=== PATIENT | female | born 1965 | race Caucasian/White ===

== ENCOUNTER 2020-05-06 16:12 | Emergency (ER) | payer BC, MEDICAID ==
[~2020-05-06] VITALS: Ht 175.3 cm; Wt 89.1 kg
[2020-05-06 17:09] LABS: BASO % 1 % (0-3); EOS # 0.1 x10^3/uL (0.0-0.7); EOS % 3 % (0-3); HEMATOCRIT 36.1 % (36.0-47.0); HEMOGLOBIN 12.7 g/dL (12.0-15.5); LYMPH # 0.8 x10^3/uL (1.0-4.8); LYMPH % 26 % (24-48); MEAN CORPUSCULAR HEMOGLOBIN 30 pg (25-35); MEAN CORPUSCULAR HGB CONC 35 g/dL (31-37); MEAN CORPUSCULAR VOLUME 85 fL (79-100); MONO # 0.3 x10^3/uL (0.0-1.1); MONO % 9 % (0-9); NEUT # 1.8 x10^3uL (1.8-7.7); NEUT % 61 % (31-73); PLATELET COUNT 74 x10^3/uL (140-400); RED BLOOD COUNT 4.27 x10^6/uL (3.50-5.40); RED CELL DISTRIBUTION WIDTH 14.8 % (11.5-14.5)
[2020-05-06 17:18] LABS: CALCIUM 8.9 mg/dL (8.5-10.1); CREATININE 1.1 mg/dL (0.6-1.0); GFR 51.4; POTASSIUM 3.7 mmol/L (3.5-5.1)
[2020-05-06 17:24] LABS: ALBUMIN 3.8 g/dL (3.4-5.0); ALBUMIN/GLOBULIN RATIO 0.9 (1.0-1.7); TOTAL BILIRUBIN 0.5 mg/dL (0.2-1.0)
--- NOTE | 2020-05-06 17:40 | RAD ---
EXAM: CT Head without IV contrast CLINICAL HISTORY: Right sided weakness COMPARISON: None. TECHNIQUE: Routine CT of the head without contrast. Soft tissues and bone windows were reviewed. PQRS compliance statement - One or more of the following individualized dose reduction techniques were utilized for this study: 1. Automated exposure control 2. Adjustment of the mA and/or kV according to patient size 3. Use of iterative reconstruction technique FINDINGS: There is no evidence of hemorrhage, mass or extra-axial fluid collection. Beaver-white differentiation is maintained with no evidence of edema. There is no mass effect or shift of the intracranial structures. The ventricles, basilar cisterns and cortical sulci are normal in size and configuration for the patients stated age. The cerebellum and brainstem are unremarkable. The calvarium demonstrates no evidence of fracture or focal lesion. There is normal aeration of the visualized paranasal sinuses and mastoid air cells. The visualized portions of the orbits are normal. Atherosclerotic calcifications of the intracranial internal carotid arteries is seen. IMPRESSION: No evidence for acute intracranial process. Electronically signed by: Archie Patton MD (05/06/2020 5:37 PM) [facility]
[2020-05-06 17:48] LABS: BARBITURATES NEG (NEG); BENZODIAZEPINES NEG (NEG); CANNABINOIDS NEG (NEG); COCAINE NEG (NEG); METHADONE NEG (NEG); OPIATES NEG (NEG); PHENCYCLIDINE NEG (NEG)
[2020-05-06 17:50] LABS: BACTERIA,URINE FEW /HPF (0-FEW); BILIRUBIN,URINE NEG (NEG); CLARITY,URINE CLEAR; COLOR,URINE YELLOW; GLUCOSE,URINE NEG (NEG); NITRITE,URINE NEG (NEG); RBC,URINE 0 /HPF (0-2); SQUAMOUS EPITHELIAL CELL,UR FEW /LPF; UROBILINOGEN,URINE 0.2 mg/dL (0.2 mg/dL)
[2020-05-06 17:53] LABS: AMPHETAMINE/METHAMPHETAMINE NEG (NEG)
--- NOTE | 2020-05-06 18:00 | PHYS DOC ---
Past History Past Medical History: Hypertension, Liver Disease, Other Additional Past Medical Histor: LUPUS, LIVER CIRRHOSIS, HEP C, UTERINE PROLAPSE Past Surgical History: Appendectomy, Other Additional Past Surgical Histo: COLONOSCOPY YESTERDAY Alcohol Use: None Drug Use: None General Adult EDM: Chief Complaint: ALTERED MENTAL STATUS HPI: HPI: Patient is a 55-year-old female who presents with altered mental status and some right-sided weakness. Patient states that she had a colonoscopy done yesterday and when she got home she did not ever feel like she completely recovered from the anesthesia. At one point she states she was seeing people with shades of green and blue. She feels like she was seeing things that were not there. She states she had fever and chills throughout the night. She denies any headache. She states her family wanted to bring her to the hospital last night because she was not acting right but she refused. She noticed this morning when she woke up that she had right-sided weakness and did not feel like her right leg was working well. [] Review of Systems: Review of Systems: Constitutional: Denies fever or chills Eyes: Denies change in visual acuity HENT: Denies nasal congestion or sore throat Respiratory: Denies cough or shortness of breath Cardiovascular: Denies chest pain or edema GI: Denies abdominal pain, nausea, vomiting, bloody stools or diarrhea : Denies dysuria Musculoskeletal: Denies back pain or joint pain Integument: Denies rash Neurologic: Reports right-sided weakness Endocrine: Denies polyuria or polydipsia Lymphatic: Denies swollen glands Psychiatric: Reports anxiety Heart Score: Risk Factors: Risk Factors: DM, Current or recent (<one month) smoker, HTN, HLP, family history of CAD, obesity. Risk Scores: Score 0 - 3: 2.5% MACE over next 6 weeks - Discharge Home Score 4 - 6: 20.3% MACE over next 6 weeks - Admit for Clinical Observation Score 7 - 10: 72.7% MACE over next 6 weeks - Early Invasive Strategies Allergies: Allergies: Allergies Coded Allergies Type Severity Reaction Last Updated Verified No Known Drug Allergies 07/13/14 No Physical Exam: PE: Constitutional: Well developed, well nourished, no acute distress, non-toxic appearance. [] HENT: Normocephalic, atraumatic, bilateral external ears normal, oropharynx moist, no oral exudates, nose normal. [] Eyes: PERRLA, EOMI, conjunctiva normal, no discharge. [] Neck: Normal range of motion, no tenderness, supple, no stridor. [] Cardiovascular:Heart rate regular rhythm, no murmur [] Lungs & Thorax: Bilateral breath sounds clear to auscultation [] Abdomen: Bowel sounds normal, soft, no tenderness, no masses, no pulsatile masses. [] Skin: Warm, dry, no erythema, no rash. [] Back: No tenderness, no CVA tenderness. [] Extremities: No tenderness, no cyanosis, no clubbing, ROM intact, no edema. [] Neurologic: Alert and oriented X 3, normal motor function, normal sensory function, no focal deficits noted. [] Psychologic: Affect normal, judgement normal, mood normal. [] Current Patient Data: Labs: Laboratory Tests Test 05/06/20 16:45 05/06/20 17:15 White Blood Count 3.0 x10^3/uL (4.0-11.0) L Red Blood Count 4.27 x10^6/uL (3.50-5.40) Hemoglobin 12.7 g/dL (12.0-15.5) Hematocrit 36.1 % (36.0-47.0) Mean Corpuscular Volume 85 fL (79-100) Mean Corpuscular Hemoglobin 30 pg (25-35) Mean Corpuscular Hemoglobin Concent 35 g/dL (31-37) Red Cell Distribution Width 14.8 % (11.5-14.5) H Platelet Count 74 x10^3/uL (140-400) L Neutrophils (%) (Auto) 61 % (31-73) Lymphocytes (%) (Auto) 26 % (24-48) Monocytes (%) (Auto) 9 % (0-9) Eosinophils (%) (Auto) 3 % (0-3) Basophils (%) (Auto) 1 % (0-3) Neutrophils # (Auto) 1.8 x10^3uL (1.8-7.7) Lymphocytes # (Auto) 0.8 x10^3/uL (1.0-4.8) L Monocytes # (Auto) 0.3 x10^3/uL (0.0-1.1) Eosinophils # (Auto) 0.1 x10^3/uL (0.0-0.7) Basophils # (Auto) 0.0 x10^3/uL (0.0-0.2) Prothrombin Time 11.5 SEC (9.4-11.4) H Prothrombin Time INR 1.1 (0.9-1.1) Sodium Level 137 mmol/L (136-145) Potassium Level 3.7 mmol/L (3.5-5.1) Chloride Level 101 mmol/L (98-107) Carbon Dioxide Level 25 mmol/L (21-32) Anion Gap 11 (6-14) Blood Urea Nitrogen 16 mg/dL (7-20) Creatinine 1.1 mg/dL (0.6-1.0) H Estimated GFR (Cockcroft-Gault) 51.4 BUN/Creatinine Ratio 15 (6-20) Glucose Level 127 mg/dL (70-99) H Calcium Level 8.9 mg/dL (8.5-10.1) Total Bilirubin 0.5 mg/dL (0.2-1.0) Aspartate Amino Transferase (AST) 29 U/L (15-37) Alanine Aminotransferase (ALT) 25 U/L (14-59) Alkaline Phosphatase 97 U/L (46-116) Ammonia 27 mcmol/L (11-34) Troponin I Quantitative < 0.017 ng/mL (0-0.055) Total Protein 8.0 g/dL (6.4-8.2) Albumin 3.8 g/dL (3.4-5.0) Albumin/Globulin Ratio 0.9 (1.0-1.7) L Ethyl Alcohol Level < 10 mg/dL (0-10) Urine Collection Type Unknown Urine Color Yellow Urine Clarity Clear Urine pH 6.0 Urine Specific [place] <=1.005 Urine Protein Neg (NEG-TRACE) Urine Glucose (UA) Neg mg/dL (NEG) Urine Ketones (Stick) Neg mg/dL (NEG) Urine Blood Neg (NEG) Urine Nitrite Neg (NEG) Urine Bilirubin Neg (NEG) Urine Urobilinogen Dipstick 0.2 mg/dL (0.2 mg/dL) Urine Leukocyte Esterase Trace (NEG) Urine RBC 0 /HPF (0-2) Urine WBC 1-4 /HPF (0-4) Urine Squamous Epithelial Cells Few /LPF Urine Bacteria Few /HPF (0-FEW) Urine Opiates Screen Neg (NEG) Urine Methadone Screen Neg (NEG) Urine Barbiturates Neg (NEG) Urine Phencyclidine Screen Neg (NEG) Urine Amphetamine/Methamphetamine Neg (NEG) Urine Benzodiazepines Screen Neg (NEG) Urine Cocaine Screen Neg (NEG) Urine Cannabinoids Screen Neg (NEG) Urine Ethyl Alcohol Neg (NEG) Vital Signs: Vital Signs Date Time Temp Pulse Resp B/P (MAP) Pulse Ox O2 Delivery O2 Flow Rate FiO2 05/06/20 17:55 95 20 173/105 (127) 96 Room Air 05/06/20 16:20 97.9 EKG: EKG: EKG: Normal sinus rhythm rate of [address]-T changes [] Radiology/Procedures: Radiology/Procedures: []PROCEDURE: CT HEAD WO CONTRAST EXAM: CT Head without IV contrast CLINICAL HISTORY: Right sided weakness COMPARISON: None. TECHNIQUE: Routine CT of the head without contrast. Soft tissues and bone windows were reviewed. PQRS compliance statement - One or more of the following individualized dose reduction techniques were utilized for this study: 1. Automated exposure control 2. Adjustment of the mA and/or kV according to patient size 3. Use of iterative reconstruction technique FINDINGS: There is no evidence of hemorrhage, mass or extra-axial fluid collection. Beaver-white differentiation is maintained with no evidence of edema. There is no mass effect or shift of the intracranial structures. The ventricles, basilar cisterns and cortical sulci are normal in size and configuration for the patients stated age. The cerebellum and brainstem are unremarkable. The calvarium demonstrates no evidence of fracture or focal lesion. There is normal aeration of the visualized paranasal sinuses and mastoid air cells. The visualized portions of the orbits are normal. Atherosclerotic calcifications of the intracranial internal carotid arteries is seen. IMPRESSION: No evidence for acute intracranial process. Course & Med Decision Making: Course & Med Decision Making Pertinent Labs and Imaging studies reviewed. (See chart for details) [ED course: Evaluation reveals a 55-year-old female who had a colonoscopy yesterday never really fully recovered this morning she woke up with right-sided weakness. Given this was a wake-up stroke and then almost 12 hours after waking up she presented to the emergency department she is out of the window for any TPA type intervention. She was given an aspirin during her stay in the department. I spoke with Dr. Restrepo at [facility] who agreed to accept her for admission. Patient will need a stroke work-up including an MRI carotid Dopplers etc.] Leonor Disclaimer: Dragon Disclaimer: This electronic medical record was generated, in whole or in part, using a voice recognition dictation system. Departure Departure: Impression: Primary Impression: Cerebrovascular accident Qualified Codes: I63.9 - Cerebral infarction, unspecified Disposition: HOME/RESIDENCE PRIOR TO ADM Condition: STABLE Referrals: WILLY ESPANA APRN (PCP) Justification of Admission: Justification of Admission: Justification of Admission Dx: N/A Altered Mental Status: Altered Mental Status KAI SCHREIBER DO May 06, 2020 18:00
--- NOTE | 2020-05-06 18:14 | EKG ---
[address] [address] Test Date: 2020-05-06 Test Time: 16:59:45 Pat Name: TAMIKO SANTOS Department: Room: Gender: F Biomedical Engineer: LEONARD : 1965 Requested By: KAI SCHREIBER Order Number: [id number] Reading MD: Measurements Intervals [place] Rate: 91 P: 42 TX: 158 QRS: -12 QRSD: 104 T: 33 QT: 376 QTc: 464 Interpretive Statements SINUS RHYTHM LEFTWARD AXIS OTHERWISE NORMAL ECG RI6.02 No previous ECG available for comparison
[2020-05-06] MEDS ORDERED: ASPIRIN CHEWABLE 81 MG TABLET. PO ONE (18:15)
[2020-05-06 19:56] VITALS: BP 173/109
== END 2020-05-06 20:04 | disposition short-term general hospital (02) ==
LOC: ER 16:12
DX: I63.9 Cerebral infarction, unspecified (principal); I10 Essential (primary) hypertension
CPT/HCPCS: 36415; 70450; 80053; 80307; 81001; 82140; 84484; 85025; 85610; 87086; 93005; 99285; G0480

== ENCOUNTER 2020-08-29 21:26 | Emergency (ER) | payer BC ==
[~2020-08-29] VITALS: Ht 175.3 cm; Wt 89.1 kg
[2020-08-29 22:10] VITALS: BP 147/102
--- NOTE | 2020-08-29 22:22 | PHYS DOC ---
Past History Past Medical History: Hypertension, Liver Disease, Other Additional Past Medical Histor: LUPUS, LIVER CIRRHOSIS, HEP C, UTERINE PROLAPSE Past Surgical History: Appendectomy, Hysterectomy, Other Additional Past Surgical Histo: COLONOSCOPY YESTERDAY, PROLASPED RECTUM Alcohol Use: None Drug Use: None General Adult EDM: Chief Complaint: URINE CATHETER PROBLEM HPI: HPI: 55-year-old female presents with discolored urine. The patient noticed what looks like brown sugar in her urine yesterday evening and it has continued today. The patient has had a catheter in for 9 days because she just recently had prolapsed bladder surgery and hysterectomy. These surgeries were just prior to the catheter placement. The patient has some generalized abdominal pelvic discomfort, but it is not increased since the discolored urine started. Patient was diagnosed with a UTI few days ago and is taking Macrobid. She tells me she has been diagnosed in the past with lupus cirrhosis. She denies fever or chills. Review of Systems: Review of Systems: Constitutional: Denies fever or chills Eyes: Denies change in visual acuity HENT: Denies nasal congestion or sore throat Respiratory: Denies cough or shortness of breath Cardiovascular: Denies chest pain or edema GI: Generalized abdominal pain. Denies nausea, vomiting, bloody stools or diarrhea : Normal urine Musculoskeletal: Denies back pain or joint pain Integument: Denies rash Neurologic: Denies headache, focal weakness or sensory changes Endocrine: Denies polyuria or polydipsia Lymphatic: Denies swollen glands Psychiatric: Denies depression or anxiety Allergies: Allergies: Allergies Coded Allergies Type Severity Reaction Last Updated Verified No Known Drug Allergies 07/13/14 No Physical Exam: PE: Constitutional: Well developed, well nourished, no acute distress, non-toxic appearance. [] HENT: Normocephalic, atraumatic, bilateral external ears normal, oropharynx moist, no oral exudates, nose normal. [] Eyes: PERRLA, EOMI, conjunctiva normal, no discharge. [] Neck: Normal range of motion, no tenderness, supple, no stridor. [] Cardiovascular: Heart rate regular rhythm, no murmur [] Lungs & Thorax: Bilateral breath sounds clear to auscultation [] Abdomen: Bowel sounds normal, soft, mild generalized tenderness, no masses, no pulsatile masses. Kelly catheter in place. [] Skin: Warm, dry, no erythema, no rash. [] Back: No tenderness, no CVA tenderness. [] Extremities: No tenderness, no cyanosis, no clubbing, ROM intact, no edema. [] Neurologic: Alert and oriented X 3, normal motor function, normal sensory function, no focal deficits noted. [] Psychologic: Affect normal, judgement normal, mood normal. [] Current Patient Data: Vital Signs: Vital Signs Date Time Temp Pulse Resp B/P (MAP) Pulse Ox O2 Delivery O2 Flow Rate FiO2 08/29/20 22:10 98.6 94 18 147/102 (117) 97 Room Air EKG: EKG: [] Radiology/Procedures: Radiology/Procedures: [] Heart Score: Risk Factors: Risk Factors: DM, Current or recent (<one month) smoker, HTN, HLP, family hist ory of CAD, obesity. Risk Scores: Score 0 - 3: 2.5% MACE over next 6 weeks - Discharge Home Score 4 - 6: 20.3% MACE over next 6 weeks - Admit for Clinical Observation Score 7 - 10: 72.7% MACE over next 6 weeks - Early Invasive Strategies Course & Med Decision Making: Course & Med Decision Making Pertinent Labs and Imaging studies reviewed. (See chart for details) The patient's urinalysis does show amorphous sediment, but no other significant findings. Her labs are significant for hemoglobin of 9.5. Her previous admit her over 12.4. I do not know if this is due to recent surgery and improving or if it is trending downward. I explained this to the patient in detail. She will return emergency room if she feels any worse throughout the weekend. Otherwise she will follow-up with her primary physician or surgeon on Tuesday for repeat labs. She is stable for discharge at this time. [] Dragon Disclaimer: Dragon Disclaimer: This electronic medical record was generated, in whole or in part, using a voice recognition dictation system. Departure Departure: Impression: Primary Impression: Abnormal urine sediment Additional Impressions: Anemia Qualified Codes: D62 - Acute posthemorrhagic anemia Dizziness Disposition: 01 DC HOME SELF CARE/HOMELESS Condition: STABLE Referrals: VISHAL NULL MD (PCP) Patient Instructions: Hemolytic Anemia DEANNA SOLIS DO Aug 29, 2020 22:22
[2020-08-29 23:10] LABS: BASO % 1 % (0-3); EOS # 0.1 x10^3/uL (0.0-0.7); EOS % 3 % (0-3); HEMATOCRIT 27.6 % (36.0-47.0); HEMOGLOBIN 9.5 g/dL (12.0-15.5); LYMPH # 0.6 x10^3/uL (1.0-4.8); LYMPH % 18 % (24-48); MEAN CORPUSCULAR HEMOGLOBIN 30 pg (25-35); MEAN CORPUSCULAR HGB CONC 34 g/dL (31-37); MEAN CORPUSCULAR VOLUME 87 fL (79-100); MONO # 0.3 x10^3/uL (0.0-1.1); MONO % 8 % (0-9); NEUT # 2.4 x10^3uL (1.8-7.7); NEUT % 70 % (31-73); PLATELET COUNT 119 x10^3/uL (140-400); RED BLOOD COUNT 3.17 x10^6/uL (3.50-5.40); RED CELL DISTRIBUTION WIDTH 15.7 % (11.5-14.5); WHITE BLOOD COUNT 3.5 x10^3/uL (4.0-11.0)
[2020-08-29 23:24] LABS: CLARITY,URINE CLOUDY; COLOR,URINE YELLOW
[2020-08-29 23:25] LABS: BACTERIA,URINE FEW /HPF (0-FEW); BILIRUBIN,URINE NEG (NEG); GLUCOSE,URINE NEG (NEG); NITRITE,URINE NEG (NEG); SQUAMOUS EPITHELIAL CELL,UR FEW /LPF; UROBILINOGEN,URINE 0.2 mg/dL (0.2 mg/dL); WBC,URINE OCC /HPF (0-4)
[2020-08-29 23:26] LABS: AMORPHOUS SEDIMENT,UR PRESENT /HPF
[2020-08-29 23:39] LABS: CALCIUM 8.6 mg/dL (8.5-10.1); CREATININE 1.1 mg/dL (0.6-1.0); GFR 51.4; POTASSIUM 3.8 mmol/L (3.5-5.1)
[2020-08-29 23:45] LABS: ALBUMIN 3.3 g/dL (3.4-5.0); ALBUMIN/GLOBULIN RATIO 0.7 (1.0-1.7); TOTAL BILIRUBIN 0.7 mg/dL (0.2-1.0); TOTAL PROTEIN 7.8 g/dL (6.4-8.2)
== END 2020-08-30 00:55 | disposition home or self-care (01) ==
LOC: ER 21:26
DX: D62 Acute posthemorrhagic anemia (principal); R82.998 Other abnormal findings in urine; R42 Dizziness and giddiness; I10 Essential (primary) hypertension; Z90.49 Acquired absence of other specified parts of digestive tract; Z90.710 Acquired absence of both cervix and uterus
CPT/HCPCS: 36415; 80053; 81001; 85025; 87086; 99283

== ENCOUNTER 2020-12-08 15:10 | Emergency (ER) | payer BC, OTHER ==
[~2020-12-08] VITALS: Ht 175.3 cm; Wt 83.7 kg
[2020-12-08] MEDS ORDERED: ONDANSETRON PF 4 MG/2 ML VIAL. IVP ONE (15:45)
[2020-12-08] MEDS ORDERED: IOHEXOL 300 MG/ML 75 ML VIAL. IV ONE (15:45)
[2020-12-08] MEDS ORDERED: OCTREOTIDE 100 MCG/ML VIAL SQ ONE (15:45)
[2020-12-08] MEDS ORDERED: IV NORMAL SALINE 1,000ML 1,000 ML IV SCH (15:45)
[2020-12-08] MEDS ORDERED: PANTOPRAZOLE IV 40 MG VIAL. IVP ONE (15:45)
[2020-12-08] MEDS ORDERED: FAMOTIDINE 20 MG/2 ML VIAL IVP ONE (15:45)
[2020-12-08] MEDS ORDERED: IV NORMAL SALINE 100ML 100 ML ONE (15:56)
[2020-12-08] MEDS ORDERED: CONTRAST GIVEN. MC PRN (16:00)
[2020-12-08 16:44] LABS: BASO % 1 % (0-3); EOS # 0.1 x10^3/uL (0.0-0.7); EOS % 3 % (0-3); HEMATOCRIT 34.4 % (36.0-47.0); HEMOGLOBIN 11.7 g/dL (12.0-15.5); LYMPH # 0.6 x10^3/uL (1.0-4.8); LYMPH % 22 % (24-48); MEAN CORPUSCULAR HEMOGLOBIN 29 pg (25-35); MEAN CORPUSCULAR HGB CONC 34 g/dL (31-37); MEAN CORPUSCULAR VOLUME 85 fL (79-100); MONO # 0.3 x10^3/uL (0.0-1.1); MONO % 9 % (0-9); NEUT # 1.9 x10^3uL (1.8-7.7); NEUT % 66 % (31-73); PLATELET COUNT 75 x10^3/uL (140-400); RED BLOOD COUNT 4.04 x10^6/uL (3.50-5.40); RED CELL DISTRIBUTION WIDTH 15.6 % (11.5-14.5); WHITE BLOOD COUNT 2.9 x10^3/uL (4.0-11.0)
[2020-12-08] MEDS ORDERED: OCTREOTIDE 100 MCG/ML VIAL IV ONE (16:45)
[2020-12-08 16:49] LABS: CALCIUM 8.9 mg/dL (8.5-10.1); CREATININE 0.9 mg/dL (0.6-1.0); GFR 64.8; POTASSIUM 3.6 mmol/L (3.5-5.1)
[2020-12-08 16:55] LABS: ALBUMIN 3.4 g/dL (3.4-5.0); ALBUMIN/GLOBULIN RATIO 0.7 (1.0-1.7); TOTAL BILIRUBIN 0.5 mg/dL (0.2-1.0)
--- NOTE | 2020-12-08 17:30 | RAD ---
Exam: CT of abdomen and pelvis with contrast INDICATION: Abdominal pain TECHNIQUE: Sequential axial images through the abdomen and pelvis obtained following the administrati on of 75 mL of Isovue-370 IV contrast. Sagittal and coronal reformatted images were reconstructed fro m the axial data and reviewed. Comparisons: None FINDINGS: Heart size is normal. No pericardial effusion. Visualized lung bases are clear. No pleural effusion. Liver, pancreas and adrenals are unremarkable. Gallbladder is partially distended with diffuse wall t hickening. Spleen is severely enlarged measuring 21.2 cm in long axis. No perinephric inflammation or hydronephrosis. No renal or ureteral calculi are identified. Bladder is decompressed not well evaluated. Uterus is absent. No abnormal adnexal mass. There is trace bowel wall thickening noted at the ascending colon. Remainder of the large and small b owel are unremarkable. No free intra-abdominal air. There is trace free fluid noted in the pelvis. Abdominal aorta has a normal course and caliber. Abdominal vasculature is patent. Extensive upper abd ominal venous collaterals are noted. No enlarged intra-abdominal lymph nodes are identified. No suspicious osseous lesions or acute fractures. IMPRESSION: 1. Gallbladder wall thickening, without a distended gallbladder. Correlate with LFTs, can be seen in the setting of acute hepatitis. 2. Secondary sequela of portal hypertension including massive splenomegaly and extensive venous renetta aterals particularly paraesophageal varices. 3. Wall thickening at the ascending colon may relate to colitis. Exposure: One or more of the following in the visualized dose reduction techniques were utilized for this examination: 1. Automated exposure control 2. Adjustment of the MA and/or KV according to patient size 3. Use of iterative of reconstructive technique Electronically signed by: Kya Szymanski MD (12/08/2020 5:28 PM) [facility]
[2020-12-08 17:50] LABS: BILIRUBIN,URINE NEG (NEG); CLARITY,URINE CLEAR; COLOR,URINE YELLOW; GLUCOSE,URINE NEG (NEG); UROBILINOGEN,URINE 0.2 mg/dL (0.2 mg/dL)
[2020-12-08 17:51] LABS: BACTERIA,URINE FEW /HPF (0-FEW); NITRITE,URINE NEG (NEG); RBC,URINE RARE /HPF (0-2); SQUAMOUS EPITHELIAL CELL,UR FEW /LPF; WBC,URINE OCC /HPF (0-4)
--- NOTE | 2020-12-08 17:52 | PHYS DOC ---
Past History Past Medical History: GERD, Other Additional Past Medical Histor: cirrhosis, portal HTN, Lupus Past Surgical History: Hysterectomy Additional Past Surgical Histo: COLONOSCOPY YESTERDAY, PROLASPED RECTUM Alcohol Use: Sober Drug Use: None Adult General Chief Complaint Chief Complaint: HEMATEMESIS/VOMITING BLOOD HPI HPI Patient is a 55F with a past medical history of hepatitis C cirrhosis however worsening condition states that she recently underwent TIPS procedure for her cirrhosis approximately 3 months later presented emergency department due to concern for bloody vomiting. Patient states that over the last 24 hours she is noted that she had 3 episodes of emesis and states that she woke up this morning after it happened spitting up a moderate amount of blood. Denies any abdominal pain at this time but does note that she has been having worsening sensation of abdominal distention over the last few months. Denies any fever, chills, diarrhea. Patient has that she primarily is seen by GI physician at [facility]. Review of Systems Review of Systems Constitutional: Denies fever or chills [] Eyes: Denies change in visual acuity, redness, or eye pain [] HENT: Denies nasal congestion or sore throat [] Respiratory: Denies cough or shortness of breath [] Cardiovascular: No additional information not addressed in HPI [] GI: Denies abdominal pain, nausea, vomiting, bloody stools or diarrhea [] : Denies dysuria or hematuria [] Musculoskeletal: Denies back pain or joint pain [] Integument: Denies rash or skin lesions [] Neurologic: Denies headache, focal weakness or sensory changes [] Endocrine: Denies polyuria or polydipsia [] All other systems were reviewed and found to be within normal limits, except as documented in this note. Current Medications Current Medications Current Medications Medications (Trade) Dose Ordered Sig/Angelica Start Time Stop Time Status Last Admin Dose Admin Ceftriaxone Sodium 2 gm/ Sodium Chloride 100 ml @ 200 mls/hr 1X ONCE 12/08/20 15:45 12/08/20 16:14 DC 12/08/20 16:14 200 MLS/HR Ceftriaxone Sodium (Rocephin) 2 gm STK-MED ONCE 12/08/20 15:55 12/08/20 15:56 DC Famotidine (Pepcid Vial) 20 mg 1X ONCE 12/08/20 15:45 12/08/20 15:46 DC 12/08/20 16:15 20 MG Info (Do NOT chart on this entry -- for MONITORING) 1 each PRN DAILY PRN 12/08/20 16:00 12/10/20 15:59 Iohexol (Omnipaque 300 Mg/ml) 75 ml 1X ONCE 12/08/20 15:45 12/08/20 15:48 DC 12/08/20 15:45 75 ML Octreotide Acetate (SandoSTATIN) 100 mcg 1X ONCE 12/08/20 16:45 12/08/20 16:46 DC 12/08/20 17:11 100 MCG Ondansetron HCl (Zofran) 4 mg 1X ONCE 12/08/20 15:45 12/08/20 15:46 DC 12/08/20 16:15 4 MG Pantoprazole Sodium (Protonix Vial) 40 mg 1X ONCE 12/08/20 15:45 12/08/20 15:46 DC 12/08/20 16:15 40 MG Sodium Chloride 100 ml @ As Directed STK-MED ONCE 12/08/20 15:56 12/08/20 15:56 DC Allergies Allergies Allergies Coded Allergies Type Severity Reaction Last Updated Verified No Known Drug Allergies 07/13/14 No Physical Exam Physical Exam Constitutional: Well developed, well nourished, no acute distress, non-toxic appearance. [] HENT: Normocephalic, atraumatic, bilateral external ears normal, oropharynx moist, no oral exudates, nose normal. [] Eyes: PERRLA, EOMI, conjunctiva normal, no discharge. [] Neck: Normal range of motion, no tenderness, supple, no stridor. [] Cardiovascular:Heart rate regular rhythm, no murmur [] Lungs & Thorax: Bilateral breath sounds clear to auscultation [] Abdomen: Bowel sounds normal, soft, no tenderness, no masses, no pulsatile masses. [] Skin: Warm, dry, no erythema, no rash. [] Back: No tenderness, no CVA tenderness. [] Extremities: No tenderness, no cyanosis, no clubbing, ROM intact, no edema. [] Neurologic: Alert and oriented X 3, normal motor function, normal sensory function, no focal deficits noted. [] Psychologic: Affect normal, judgement normal, mood normal. [] Current Patient Data Vital Signs Vital Signs Date Time Temp Pulse Resp B/P (MAP) Pulse Ox O2 Delivery O2 Flow Rate FiO2 12/08/20 15:30 97.8 99 18 145/105 (118) 99 Room Air Lab Results Laboratory Tests Test 12/08/20 16:10 White Blood Count 2.9 x10^3/uL (4.0-11.0) L Red Blood Count 4.04 x10^6/uL (3.50-5.40) Hemoglobin 11.7 g/dL (12.0-15.5) L Hematocrit 34.4 % (36.0-47.0) L Mean Corpuscular Volume 85 fL (79-100) Mean Corpuscular Hemoglobin 29 pg (25-35) Mean Corpuscular Hemoglobin Concent 34 g/dL (31-37) Red Cell Distribution Width 15.6 % (11.5-14.5) H Platelet Count 75 x10^3/uL (140-400) L Neutrophils (%) (Auto) 66 % (31-73) Lymphocytes (%) (Auto) 22 % (24-48) L Monocytes (%) (Auto) 9 % (0-9) Eosinophils (%) (Auto) 3 % (0-3) Basophils (%) (Auto) 1 % (0-3) Neutrophils # (Auto) 1.9 x10^3uL (1.8-7.7) Lymphocytes # (Auto) 0.6 x10^3/uL (1.0-4.8) L Monocytes # (Auto) 0.3 x10^3/uL (0.0-1.1) Eosinophils # (Auto) 0.1 x10^3/uL (0.0-0.7) Basophils # (Auto) 0.0 x10^3/uL (0.0-0.2) Prothrombin Time 11.5 SEC (9.4-11.4) H Prothrombin Time INR 1.1 (0.9-1.1) Activated Partial Thromboplast Time 25 SEC (23-33) Sodium Level 139 mmol/L (136-145) Potassium Level 3.6 mmol/L (3.5-5.1) Chloride Level 103 mmol/L (98-107) Carbon Dioxide Level 27 mmol/L (21-32) Anion Gap 9 (6-14) Blood Urea Nitrogen 15 mg/dL (7-20) Creatinine 0.9 mg/dL (0.6-1.0) Estimated GFR (Cockcroft-Gault) 64.8 BUN/Creatinine Ratio 17 (6-20) Glucose Level 169 mg/dL (70-99) H Calcium Level 8.9 mg/dL (8.5-10.1) Total Bilirubin 0.5 mg/dL (0.2-1.0) Aspartate Amino Transferase (AST) 30 U/L (15-37) Alanine Aminotransferase (ALT) 25 U/L (14-59) Alkaline Phosphatase 106 U/L (46-116) Creatine Kinase 166 U/L (26-192) Total Protein 8.0 g/dL (6.4-8.2) Albumin 3.4 g/dL (3.4-5.0) Albumin/Globulin Ratio 0.7 (1.0-1.7) L Lipase 92 U/L (73-393) EKG EKG [] Radiology/Procedures Radiology/Procedures [] Heart Score Risk Factors: Risk Factors: DM, Current or recent (<one month) smoker, HTN, HLP, family history of CAD, obesity. Risk Scores: Risk Factors: DM, Current or recent (<one month) smoker, HTN, HLP, family history of CAD, obesity. Course & Med Decision Making Course & Med Decision Making Pertinent Labs and Imaging studies reviewed. (See chart for details) 55f presenting the emergency department for new onset of possible hematemesis in the having of sepsis or respiratory signs raise concern for acute variceal bleeding. At this time will obtain labs as well as a CT scan of the abdomen pelvis to evaluate for possible varices. Labs obtained without any significant evidence of acute blood loss anemia but there is a mild thrombocytopenia. CT scan was obtained which does demonstrate cirrhosis as well as evidence of varices. No evidence of active bleeding at this time. Currently attempting to arrange transfer to [facility] under the care of the GI physicians here for observation overnight. Patient has received Rocephin, octreotide and Protonix. Dragon Disclaimer Dragon Disclaimer This electronic medical record was generated, in whole or in part, using a voice recognition dictation system. Departure Departure: Referrals: VISHAL NULL MD (PCP) FELISHA CRANE MD Dec 08, 2020 17:52
[2020-12-08 20:20] VITALS: BP 147/90
== END 2020-12-08 21:34 | disposition short-term general hospital (02) ==
LOC: ER 15:10
DX: R11.10 Vomiting, unspecified (principal); R14.0 Abdominal distension (gaseous); K21.9 Gastro-esophageal reflux disease without esophagitis; Z90.710 Acquired absence of both cervix and uterus
CPT/HCPCS: 36415; 74177; 80053; 81001; 82550; 83690; 85025; 85610; 85730; 96374; 96375; 99285; C9113; J0696; J2354; J2405; J3490; J7030; Q9967

== ENCOUNTER 2022-03-07 11:36 | Inpatient (IN) | payer OTHER ==
[~2022-03-07] VITALS: Ht 175.3 cm; Wt 76.6 kg
--- NOTE | 2022-03-07 12:00 | PHYS DOC ---
Past History Past Medical History: GERD, Other Additional Past Medical Histor: cirrhosis, portal HTN, Lupus Past Surgical History: Hysterectomy Additional Past Surgical Histo: COLONOSCOPY YESTERDAY, PROLASPED RECTUM Alcohol Use: Sober Drug Use: None General Adult EDM: Chief Complaint: FACE PROBLEM HPI: HPI: 57-year-old female presents with left facial swelling. The swelling is just in front of the left ear and the posterior half of the left cheek. The patient states that she has had intermittent swelling in this area for about a year. It seems to come and go randomly. Today it is more painful and more swollen than she has ever had it before. She has an appointment with her doctor coming up this week but was not sure if she can wait that long. She denies fever or chills. She did have a fever a few days ago and she has been struggling with a cough. Review of Systems: Review of Systems: Constitutional: Denies fever or chills Eyes: Denies change in visual acuity HENT: Denies nasal congestion or sore throat. Left cheek swelling Respiratory: Cough without shortness of breath Cardiovascular: Denies chest pain or edema GI: Denies abdominal pain, nausea, vomiting, bloody stools or diarrhea : Denies dysuria Musculoskeletal: Denies back pain or joint pain Integument: Denies rash Neurologic: Denies headache, focal weakness or sensory changes Endocrine: Denies polyuria or polydipsia Lymphatic: Denies swollen glands Psychiatric: Denies depression or anxiety Allergies: Allergies: Allergies Coded Allergies Type Severity Reaction Last Updated Verified No Known Drug Allergies 07/13/14 No Physical Exam: PE: Constitutional: Well developed, well nourished, no acute distress, non-toxic appearance. [] HENT: Normocephalic, atraumatic, bilateral external ears normal, oropharynx moist, no oral exudates, nose normal. Swelling of the left preauricular region and cheek, no overlying cellulitis. Poor dentition. [] Eyes: PERRLA, EOMI, conjunctiva normal, no discharge. [] Neck: Normal range of motion, no tenderness, supple, no stridor. [] Cardiovascular: Heart rate regular rhythm, no murmur [] Lungs & Thorax: Bilateral breath sounds clear to auscultation [] Abdomen: Bowel sounds normal, soft, no tenderness, no masses, no pulsatile mass es. [] Skin: Warm, dry, no erythema, no rash. [] Back: No tenderness, no CVA tenderness. [] Extremities: No tenderness, no cyanosis, no clubbing, ROM intact, no edema. [] Neurologic: Alert and oriented X 3, normal motor function, normal sensory function, no focal deficits noted. [] Psychologic: Affect normal, judgement normal, mood normal. [] EKG: EKG: [] Radiology/Procedures: Radiology/Procedures: [] Impressions: Exam Date: 03/07/2022 11:[address] HEAD AND MAXILLOFACIAL WO Indication: Reason: left facial swelling, pain / Spl. Instructions: / History: . One or more of the following dose reduction techniques were utilized: *Automated exposure control (AEC) *Adjustment of mA and/or kV according to patient size *Use of iterative reconstruction technique *CT scan done according to ALARA, or ALARA/IMAGE GENTLY EXAMINATION: CT OF THE HEAD WITHOUT CONTRAST INDICATION: Trauma, head injury, headache; TECHNIQUE: Noncontrast helical axial CT images of the head were obtained. COMPARISON: May 06, 2020 FINDINGS: The ventricles and sulci are normal for the patient's stated age. There is no evidence of acute intracranial hemorrhage, extra-axial collection, mass effect, midline shift, or acute territorial infarct. No lesion of the skull base or the calvarium is seen. IMPRESSION: No evidence for acute intracranial abnormality. EXAMINATION: MAXILLOFACIAL CT WITHOUT CONTRAST CLINICAL INDICATION: Maxillofacial pain after trauma TECHNIQUE: Helical axial CT images through the maxillofacial bones were obtained without contrast. Source data were reconstructed into the sagittal and coronal planes. FINDINGS: There is partial opacification of the paranasal sinuses, with osseous remodeling on the right consistent with chronic sinusitis. There is complete opacification of the left mastoid air cells. Right mastoid air cells are within normal limits. Subcutaneous fat stranding is seen overlying the left parotid gland, which is increased in size in comparison to the right. No organized collection or abnormal mass lesion is identified. There is no evidence of acute facial bone fracture. The mandible appears intact. Orbits appear intact. The nasal septum is intact and near midline. IMPRESSION: Increased size of the right parotid gland with overlying fat stranding consistent with parotiditis. No organized collection or abnormal mass lesion is identified. Complete opacification of the left mastoid air cells is nonspecific. Correlate clinically for mastoiditis. Partial opacification of the paranasal sinuses with bony remodeling consistent with chronic sinusitis. Electronically signed by: Laney Jauregui MD (03/07/2022 1:12 PM) [id number] DICTATED AND SIGNED BY: LANEY JAUREGUI MD DATE: 03/07/22 1300 CC: DEANNA SOLIS DO; VISHAL NULL MD ~ Heart Score: C/O Chest Pain: N/A Risk Factors: Risk Factors: DM, Current or recent (<one month) smoker, HTN, HLP, family history of CAD, obesity. Risk Scores: Score 0 - 3: 2.5% MACE over next 6 weeks - Discharge Home Score 4 - 6: 20.3% MACE over next 6 weeks - Admit for Clinical Observation Score 7 - 10: 72.7% MACE over next 6 weeks - Early Invasive Strategies Course & Med Decision Making: Course & Med Decision Making Pertinent Labs and Imaging studies reviewed. (See chart for details) The patient CT scan revealed suggest parotitis. There is no clear evidence of a stone for sialoadenitis. Given the potential complications from this admission and IV antibiotics are indicated. We will give her Zosyn in the emergency room. I spoke with Dr. George, hospitalist and he has accepted the patient for admission. He is also requested we add vancomycin. [] Dragon Disclaimer: Dragon Disclaimer: This electronic medical record was generated, in whole or in part, using a voice recognition dictation system. Departure Departure: Impression: Primary Impression: Infectious parotitis Disposition: ADMITTED INPATIENT Admitting Physician: Angel George Condition: STABLE Referrals: VISHAL NULL MD (PCP) DEANNA SOLIS DO March 07, 2022 12:00
[2022-03-07] MEDS ORDERED: traMADol 50 MG TABLET PO ONE (13:00)
--- NOTE | 2022-03-07 13:15 | RAD ---
Exam Date: 03/07/2022 11:[address] HEAD AND MAXILLOFACIAL WO Indication: Reason: left facial swelling, pain / Spl. Instructions: / History: . One or more of the following dose reduction techniques were utilized: *Automated exposure control (AEC) *Adjustment of mA and/or kV according to patient size *Use of iterative reconstruction technique *CT scan done according to ALARA, or ALARA/IMAGE GENTLY EXAMINATION: CT OF THE HEAD WITHOUT CONTRAST INDICATION: Trauma, head injury, headache; TECHNIQUE: Noncontrast helical axial CT images of the head were obtained. COMPARISON: May 06, 2020 FINDINGS: The ventricles and sulci are normal for the patient's stated age. There is no evidence of acute int racranial hemorrhage, extra-axial collection, mass effect, midline shift, or acute territorial infarc t. No lesion of the skull base or the calvarium is seen. IMPRESSION: No evidence for acute intracranial abnormality. EXAMINATION: MAXILLOFACIAL CT WITHOUT CONTRAST CLINICAL INDICATION: Maxillofacial pain after trauma TECHNIQUE: Helical axial CT images through the maxillofacial bones were obtained without contrast. So urce data were reconstructed into the sagittal and coronal planes. FINDINGS: There is partial opacification of the paranasal sinuses, with osseous remodeling on the right consist ent with chronic sinusitis. There is complete opacification of the left mastoid air cells. Right ma stoid air cells are within normal limits. Subcutaneous fat stranding is seen overlying the left parotid gland, which is increased in size in co mparison to the right. No organized collection or abnormal mass lesion is identified. There is no evidence of acute facial bone fracture. The mandible appears intact. Orbits appear intact . The nasal septum is intact and near midline. IMPRESSION: Increased size of the right parotid gland with overlying fat stranding consistent with parotiditis. No organized collection or abnormal mass lesion is identified. Complete opacification of the left mastoid air cells is nonspecific. Correlate clinically for mastoi ditis. Partial opacification of the paranasal sinuses with bony remodeling consistent with chronic sinusitis . Electronically signed by: Osvaldo Jauregui MD (03/07/2022 1:12 PM) [id number]
[2022-03-07] MEDS ORDERED: IV NORMAL SALINE 1,000ML 1,000 ML IV ONE (13:45)
[2022-03-07] MEDS ORDERED: traMADol 50 MG TABLET PO PRN (14:00)
[2022-03-07] MEDS ORDERED: ACETAMINOPHEN 325 MG TABLET PO PRN (14:00)
[2022-03-07] MEDS ORDERED: PIP/TAZO PER PHARMACY MC PRN (14:00)
[2022-03-07] MEDS ORDERED: ONDANSETRON PF 4 MG/2 ML VIAL. IVP PRN (14:00)
[2022-03-07] MEDS ORDERED: PIPERACILLIN/TAZOBACTAM 3.375 GM in IV NORMAL SALINE 50ML 50 ML IV ONE (14:00)
[2022-03-07 14:15] LABS: CREATININE 0.9 mg/dL (0.6-1.0); GFR 64.3
[2022-03-07] MEDS ORDERED: VANCOMYCIN 2 GM in IV DEXTROSE 5% 500 ML IV ONE (14:15)
[2022-03-07] MEDS ORDERED: IV NORMAL SALINE 50ML 50 ML ONE (14:16)
[2022-03-07] MEDS ORDERED: PIPERACILLIN/TAZOBACTAM 3.375 GM VIAL IV ONE (14:16)
[2022-03-07 14:20] LABS: BASO % 1 % (0-3); EOS # 0.1 x10^3/uL (0.0-0.7); EOS % 3 % (0-3); HEMATOCRIT 32.4 % (36.0-47.0); HEMOGLOBIN 11.2 g/dL (12.0-15.5); LYMPH # 0.5 x10^3/uL (1.0-4.8); LYMPH % 21 % (24-48); MEAN CORPUSCULAR HEMOGLOBIN 30 pg (25-35); MEAN CORPUSCULAR HGB CONC 35 g/dL (31-37); MEAN CORPUSCULAR VOLUME 87 fL (79-100); MONO # 0.2 x10^3/uL (0.0-1.1); MONO % 9 % (0-9); NEUT # 1.7 x10^3uL (1.8-7.7); NEUT % 67 % (31-73); PLATELET COUNT 77 x10^3/uL (140-400); RED BLOOD COUNT 3.72 x10^6/uL (3.50-5.40); RED CELL DISTRIBUTION WIDTH 15.4 % (11.5-14.5); WHITE BLOOD COUNT 2.5 x10^3/uL (4.0-11.0)
[2022-03-07 14:21] LABS: ALBUMIN 3.2 g/dL (3.4-5.0); ALBUMIN/GLOBULIN RATIO 0.6 (1.0-1.7); TOTAL PROTEIN 8.2 g/dL (6.4-8.2)
[2022-03-07] MEDS ORDERED: ONDANSETRON PF 4 MG/2 ML VIAL. IVP ONE (15:15)
[2022-03-07] MEDS ORDERED: MORPHINE SULFATE 2 MG/ML DISP.SYRIN. IV ONE (15:15)
[2022-03-07] MEDS: VANCOMYCIN PER PHARMACY MC PRN (15:17)
[2022-03-07] MEDS: HYDROcodone/APAP 5/325MG 1 TAB TABLET PO PRN (15:21)
[2022-03-07 15:45] VITALS: BP 161/89
[2022-03-07] MEDS ORDERED: LIDO15CR9 TP (17:08)
[2022-03-07] MEDS ORDERED: FURO20TA3 PO (17:08)
[2022-03-07] MEDS ORDERED: AMIT50TA PO (17:08)
[2022-03-07] MEDS ORDERED: SPIR50TA4 PO (17:08)
[2022-03-07] MEDS ORDERED: SUCR1ORA14 PO (17:08)
[2022-03-07] MEDS: SUCRALFATE 1 GM/10 ML ORAL.SUSP. PO SCH (17:15)
[2022-03-07] MEDS ORDERED: LIDOCAINE 2% VISCOUS 15 ML SOLUTION. SWSP PRN (17:30)
[2022-03-07] MEDS: PIPERACILLIN/TAZOBACTAM 3.375 GM in IV NORMAL SALINE 50ML 50 ML IV SCH (19:40)
[2022-03-07 19:45] VITALS: BP 160/90
[2022-03-07] MEDS ORDERED: AMITRIPTYLINE HCL 50 MG TABLET PO SCH (21:00)
[2022-03-07 23:25] VITALS: BP 157/83
[2022-03-08] MEDS: PIPERACILLIN/TAZOBACTAM 3.375 GM in IV NORMAL SALINE 50ML 50 ML IV SCH ×4 (02:06→20:10)
[2022-03-08] MEDS ORDERED: VANCOMYCIN 1.25 GM in IV DEXTROSE 5% 250 ML IV SCH (03:00)
[2022-03-08] MEDS: VANCOMYCIN 1.25 GM in IV NORMAL SALINE 250ML 250 ML IV SCH ×2 (03:01→16:03)
[2022-03-08 05:02] VITALS: BP 137/80
[2022-03-08] MEDS ORDERED: FUROSEMIDE 20 MG TABLET PO SCH (09:00)
--- NOTE | 2022-03-08 09:36 | HP ---
DATE OF SERVICE: 03/08/2022 ADMIT DATE: 03/07/2022 ATTENDING PHYSICIAN: Dr. George. CHIEF COMPLAINT: Left-sided facial swelling. HISTORY OF PRESENT ILLNESS: The patient is a 57-year-old female, admitted through the ED with a 3-day history of increasing right facial pain, swelling, funny taste. Workup in the ED showed she had a significant cellulitis and parotitis. There is no obvious history of stones in the parotid gland, but she has not had a sialogram in the past. She is a nonsmoker, nondrinker. She is a bit of immunocompromise. She does have chronic longstanding cirrhosis of the liver with resultant esophageal varices and banding. She also states she had lupus at one time, I am not sure whether this is legitimate. In any event, she was started on broad spectrum antibiotics. She is a little better by the time I saw her. She has had her COVID vaccine. She also tested positive for COVID by PCR; however, she is asymptomatic. She has no respiratory distress. She is a nonsmoker. Her x-rays were clear. PAST MEDICAL HISTORY: Significant for the cirrhosis of the liver due to chronic alcoholism and the hepatitis C from intravenous drug use. She also has esophageal varices. She is scheduled for a repeat endoscopy in 2 weeks. CURRENT MEDICATIONS: Include amitriptyline, Lasix, lidocaine, Aldactone and Carafate. ALLERGIES: She has no known drug allergies. SOCIAL HISTORY: She is a nonsmoker. She used to drink heavily in the past. FAMILY HISTORY: Mom of complications of liver cancer at age 81. Father of stroke at age 84. She works at [employer] and has been employed. REVIEW OF SYSTEMS: Unremarkable for any COVID symptoms. She has been fully vaccinated. No recent travel. All other systems reviewed and determined to be negative. PHYSICAL EXAMINATION: GENERAL: When I saw her, this is a pleasant, middle-aged female. INITIAL VITAL SIGNS: Showed a blood pressure of 137/80 mmHg. She is afebrile. Oxygen saturation 91% on room air. HEENT: Head is without trauma. Pupils are reactive. Sclerae are nonicteric. There is significant swelling and edema of the left side of the face extending all the way down to the neck. The oropharynx is clear. I do not see any obstruction. There is no stridor. LUNGS: Otherwise clear. CARDIOVASCULAR: Regular heart tones. ABDOMEN: Soft. EXTREMITIES: Without edema. NEUROLOGIC: Focally intact. PERTINENT LABORATORY STUDIES: Admission hemoglobin was 11.2 g/dL, white count is 2500. Electrolytes all within normal range with a normal BUN and creatinine, creatinine is 0.9 mg%. Electrolytes within range. Nonfasting blood sugar 167. Transaminases were normal. Serology was indeed positive for coronavirus. IMAGING STUDIES: She had a head and facial bone CT, which showed partial opacification of the paranasal sinuses, chronic sinusitis, subcutaneous fat stranding in left parotid gland which has increased in size. No evidence of any fractures. The report is consistent with acute parotitis. ASSESSMENT: 1. A 57-year-old female with a left-sided swelling. She has acute parotid gland infection. This is also known as a surgical mumps. 2. History of cirrhosis of the liver related to alcohol and hepatitis C. 3. History of esophageal varices with banding, currently stable. 4. Remote history of lupus, although I do not think this is active. PLAN: 1. Admit to the inpatient unit. 2. Intravenous broad-spectrum antibiotics. 3. Continue home meds. For now, I have held her Elavil due to dry mouth. JOSEFINA/REMINGTON/BER[place] DR: Lashonda TID: [id number] CC: VISHAL NULL MD
[2022-03-08] MEDS: SUCRALFATE 1 GM/10 ML ORAL.SUSP. PO SCH ×2 (09:54→16:30)
[2022-03-08 11:30] VITALS: BP 149/83
[2022-03-08] MEDS: guaiFENesin/CODEINE 100mg/10mg 5 ML LIQUID PO PRN ×2 (11:52→19:12)
[2022-03-08] MEDS: LIDOCAINE 2% VISCOUS 15 ML SOLUTION. SWSP PRN ×2 (11:52→19:12)
[2022-03-08 15:00] VITALS: BP 152/82
[2022-03-08] MEDS ORDERED: SUCRALFATE 1 GM/10 ML ORAL.SUSP. PO PRN (17:00)
[2022-03-08 19:10] VITALS: BP 132/81
[2022-03-08] MEDS: HYDROcodone/APAP 5/325MG 1 TAB TABLET PO PRN (20:21)
[2022-03-08] MEDS: ONDANSETRON PF 4 MG/2 ML VIAL. IVP PRN (20:57)
[2022-03-09] MEDS: PIPERACILLIN/TAZOBACTAM 3.375 GM in IV NORMAL SALINE 50ML 50 ML IV SCH ×4 (01:41→19:36)
[2022-03-09 02:54] LABS: VANC TR 21.5 mcg/mL (10.0-20.0)
[2022-03-09] MEDS: VANCOMYCIN PER PHARMACY MC PRN (03:39)
[2022-03-09 06:27] VITALS: BP 154/89
[2022-03-09] MEDS: VANCOMYCIN 1 GM in IV NORMAL SALINE 250ML 250 ML IV SCH ×2 (08:54→20:25)
[2022-03-09 15:30] VITALS: BP 157/84
[2022-03-09 19:09] VITALS: BP 156/84
[2022-03-09] MEDS: ONDANSETRON PF 4 MG/2 ML VIAL. IVP PRN (19:35)
[2022-03-09] MEDS: guaiFENesin/CODEINE 100mg/10mg 5 ML LIQUID PO PRN (19:35)
[2022-03-09] MEDS: HYDROcodone/APAP 5/325MG 1 TAB TABLET PO PRN (19:36)
--- NOTE | 2022-03-10 01:46 | PN ---
DATE: 03/09/2022 ATTENDING PHYSICIAN: Dr. George. SUBJECTIVE: The patient is doing better. Swelling is down. Taste is improving. She has no new complaints. OBJECTIVE FINDINGS: VITAL SIGNS: Blood pressure this morning is 150/80, her pulse is 80 and regular. She is afebrile. Oxygen saturation 91% on room air. HEENT: Head is without trauma. Pupils are reactive. Sclerae nonicteric. Oropharynx is clear. I examined her left side of the face with swelling and edema is improved. She has good range of motion. NECK: Supple. There is no stridor. LUNGS: Otherwise clear. CARDIOVASCULAR: Showed regular heart tones. ABDOMEN: Soft. No guarding. EXTREMITIES: Without edema. NEUROLOGIC: Focally intact. ASSESSMENT: 1. A 57-year-old female with left-sided facial swelling. She has acute parotid gland infection. 2. History of cirrhosis of the liver related to alcohol and hepatitis C. 3. History of esophageal varices with banding. 4. Remote history of lupus, although I do not think this is active. PLAN: 1. Continue her antibiotics, intravenous as ordered. 2. Home medications continued. 3. Tentative discharge plans for tomorrow to finish her course of antibiotics. JOSEFINA/TONJA DR: JOSEFINA/patricia TID: [id number]
[2022-03-10] MEDS: PIPERACILLIN/TAZOBACTAM 3.375 GM in IV NORMAL SALINE 50ML 50 ML IV SCH ×2 (02:03→08:18)
[2022-03-10 06:24] VITALS: BP 147/79
[2022-03-10] MEDS: VANCOMYCIN 1 GM in IV NORMAL SALINE 250ML 250 ML IV SCH (08:19)
[2022-03-10 08:28] LABS: GFR 56.9
--- NOTE | 2022-03-10 21:19 | DS ---
DATE OF DISCHARGE: 03/10/2022 ATTENDING PHYSICIAN: Dr. George. FINAL DISCHARGE DIAGNOSES: 1. Acute infection of the parotid gland, left. 2. Significant facial swelling improved. 3. History of cirrhosis of the liver due to alcohol and hepatitis C. 4. History of esophageal varices. 5. Remote history of lupus, questionable. 6. Asymptomatic coronavirus infection. She has been vaccinated. HISTORY AND PHYSICAL: The patient is a 57-year-old female admitted through the ED with facial swelling. CT showed inflammation and infection of the parotid gland. No stones or blockage identified. PHYSICAL EXAMINATION: Please see my dictated note. PERTINENT LABORATORY AND X-RAY STUDIES: On admission, her hemoglobin was 11.2 g/dL, white count 2500. Platelets are 77,000. No active bleeding. Creatinine is 1 mg percent. Electrolytes, BUN and creatinine within normal range. Serology indeed positive for coronavirus, although she is asymptomatic. COURSE IN THE HOSPITAL: The patient was admitted with a parotid infection. She was started on intravenous Zosyn and vancomycin with marked improvement. Swelling came down. Pain was managed. We had an incidental finding of coronavirus. She has been vaccinated. She has no other symptoms. She did not require any supplemental oxygen. No pulmonary symptoms. Otherwise, quite stable. She received 3 full days of intravenous Zosyn and vancomycin. On the fourth hospital day, her vital signs were stable, swelling had come down significantly. She was ready for discharge. At this time, I recommended 7 more days of Augmentin 875 one p.o. b.i.d. Followup visit with Dr. Yumiko George in 1 week's time. Other home meds are unchanged. She should continue her scheduled Lasix, Lidoderm patch and Carafate. For now, we held her amitriptyline and Aldactone. She can restart this at a later date, she was discharged then from our hospital in stable condition with explicit drug and followup care. JOSEFINA/YUDY DR: Lashonda TID: [id number] CC: YUMIKO NULL MD
== END 2022-03-10 11:30 | disposition home or self-care (01) | DRG 154 ==
LOC: ER 11:36 → ER HOLD 13:48 → 1 SOUTH 15:30
PROVIDERS: ADMIT Hospitalist; ATTEND Hospitalist
DX: K11.21 Acute sialoadenitis (principal); U07.1 COVID-19; L03.90 Cellulitis, unspecified; K76.6 Portal hypertension; B97.29 Other coronavirus as the cause of diseases classified elsewhere; J32.9 Chronic sinusitis, unspecified; K70.30 Alcoholic cirrhosis of liver without ascites; Z20.822 Contact with and (suspected) exposure to COVID-19; Z80.0 Family history of malignant neoplasm of digestive organs; Z82.3 Family history of stroke; Z90.710 Acquired absence of both cervix and uterus; K21.9 Gastro-esophageal reflux disease without esophagitis; Z63.4 Disappearance and death of family member
CPT/HCPCS: 36415; 70450; 70486; 80053; 80202; 82565; 85025; 87426; 96361; 96365; 96367; 96375; J2405; J2543; J3370; J7050; U0003; 99285-25; J7030